=== PATIENT | female | born 1935 | race Caucasian/White ===

== ENCOUNTER → 2018-03-03 | Outpatient (CLI) | payer MEDICARE ==
[~2018-03-03] MED LIST: ATEN25; Colace100 MG PO; HYDR-86; LEVSOD50; Percocet 5-3251 EACH PO; TRIHYD253A PO
[2018-03-03 15:51] LABS: Source, Urine Clean Catch
[2018-03-03 16:35] LABS: Appearance, Urine Cloudy (Clear); Bilirubin, Urine Neg (Neg); Blood, Urine 2+ (Neg); Color, Urine Yellow (P-Yellow); Glucose Qualitative, Urine Neg (Neg); Ketones, Urine Neg (Neg); Leukocyte Esterase, Urine 3+ (Neg); Nitrite, Urine Pos (Neg); Protein, Urine 2+ (Neg); Urobilinogen, Urine NORM (Normal); pH, Urine 6.5 (5.0-8.0)
[2018-03-03 16:37] LABS: White Blood Cells, Urine TNTC /hpf (0-5)
[2018-03-03 16:38] LABS: Bacteria Many /hpf; Squamous Epithelial Cells Rare /hpf (Few); Transitional Epithelial Cells Few /hpf (0-Rare)
== END ==
LOC: LAB SHORT 12:40 → LAB 12:40
PROVIDERS: Physician Assistant
DX: N39.0 Urinary tract infection, site not specified (principal); Z87.440 Personal history of urinary (tract) infections
CPT/HCPCS: 81015; 87077; 87086; 87186

== ENCOUNTER → 2019-11-27 | Outpatient (CLI) | payer MEDICARE | END | disposition home or self-care (01) | LOC: LAB 19:42 → LAB SHORT 19:42 | DX: N39.0 Urinary tract infection, site not specified (principal) | CPT/HCPCS: 87077; 87086; 87186 ==

== ENCOUNTER → 2020-03-21 | Outpatient (CLI) | payer MEDICARE | END | disposition home or self-care (01) | LOC: LAB 13:02 → LAB SHORT 13:02 | DX: N39.0 Urinary tract infection, site not specified (principal) | CPT/HCPCS: 87077; 87086; 87186 ==

== ENCOUNTER → 2020-05-09 | Outpatient (CLI) | payer MEDICARE | END | disposition home or self-care (01) | LOC: OLS 16:14 → LAB SHORT 16:14 | DX: N39.0 Urinary tract infection, site not specified (principal); Z87.440 Personal history of urinary (tract) infections | CPT/HCPCS: 87077; 87086; 87186 ==

== ENCOUNTER → 2020-07-17 | Outpatient (CLI) | payer MEDICARE | LOC: LAB SHORT 10:24 | DX: N39.0 Urinary tract infection, site not specified (principal) | CPT/HCPCS: 87077; 87086; 87186 ==

== ENCOUNTER → 2021-04-17 | Outpatient (CLI) | payer MEDICARE | END | disposition home or self-care (01) | LOC: LAB 10:05 → LAB SHORT 10:05 | DX: N39.0 Urinary tract infection, site not specified (principal) | CPT/HCPCS: 87077; 87086; 87186 ==

== ENCOUNTER → 2021-05-08 | Outpatient (CLI) | payer MEDICARE | END | disposition home or self-care (01) | LOC: LAB 10:03 → LAB SHORT 10:03 | DX: N39.0 Urinary tract infection, site not specified (principal) | CPT/HCPCS: 87077; 87086; 87186 ==

== ENCOUNTER → 2021-10-16 | Outpatient (CLI) | payer MEDICARE | LOC: LAB SHORT 09:15 → LAB 09:15 | DX: N39.0 Urinary tract infection, site not specified (principal) | CPT/HCPCS: 87077; 87086; 87186 ==

== ENCOUNTER → 2022-04-27 | Outpatient (CLI) | payer MEDICARE | END | disposition home or self-care (01) | LOC: LAB 18:51 → LAB SHORT 18:51 | DX: N39.0 Urinary tract infection, site not specified (principal) | CPT/HCPCS: 87077; 87086; 87186 ==

== ENCOUNTER → 2023-03-27 | Outpatient (CLI) | payer MEDICARE | END | disposition home or self-care (01) | LOC: LAB SHORT 14:00 → LAB 14:00 | DX: N39.0 Urinary tract infection, site not specified (principal) | CPT/HCPCS: 87077; 87086; 87186 ==

== ENCOUNTER → 2023-05-20 | Outpatient (CLI) | payer MEDICARE | LOC: LAB 12:55 → LAB SHORT 12:55 | DX: N39.0 Urinary tract infection, site not specified (principal) | CPT/HCPCS: 87077; 87086; 87186 ==

== ENCOUNTER → 2023-07-03 | Outpatient (CLI) | payer MEDICARE | LOC: LAB SHORT 11:49 → LAB 11:49 | DX: R30.0 Dysuria (principal) | CPT/HCPCS: 87077; 87086; 87186 ==